=== PATIENT | male | born 1975 | race Caucasian/White ===

== ENCOUNTER → 2019-04-16 | Outpatient (CLI) | payer BC ==
--- NOTE | 2019-04-16 15:18 | US ---
EXAM DESCRIPTION: Venous,Lower Extremity LT: ULTRASOUND. CLINICAL HISTORY: Leg pain left lower extremity. COMPARISON: None Available. TECHNIQUE: Michel-scale and doppler sonographic evaluation of the deep venous system of the left lower extremity. FINDINGS: Doppler evaluation shows normal color flow and normal phasicity and augmentation of the left common femoral vein, femoral vein, popliteal vein, greater saphenous vein, junction with the CFV. Also normal color flow and normal phasicity and augmentation of the peroneal, and posterior tibial vein. The left lower extremity deep veins were completely compressible; normal occlusion with transducer pressure. Michel-scale survey showed no echogenic thrombus within these veins. A small caliber, superficial midline vein posterior to the popliteal fossa that courses to the popliteal vein contains echogenic thrombus on grayscale imaging and is not compressible with the transducer. Also diminished color Doppler flow. As described above, no thrombus in the popliteal vein. IMPRESSION: 1. Duplex ultrasound evaluation of the left lower extremity deep venous system showing no evidence of thrombosis. 2. Thrombus in a posterior midline superficial vein in the popliteal region, but no thrombus in the popliteal vein. This is clinically insignificant. Electronically signed by: Adrian Mcgill MD 04/16/2019 3:16 PM [employer]
--- NOTE | 2019-04-16 15:19 | US ---
EXAM DESCRIPTION: Venous,Lower Extremity RT: ULTRASOUND. CLINICAL HISTORY: leg pain right lower extremity pain and swelling. COMPARISON: Duplex ultrasound evaluation of the deep venous system of the left lower extremity. TECHNIQUE: Michel-scale and doppler sonographic evaluation of the deep venous system of the right lower extremity. FINDINGS: Doppler evaluation shows normal color flow and normal phasicity and augmentation of the right common femoral vein, femoral vein, popliteal vein, greater saphenous vein, junction with the CFV. Also normal color flow and normal phasicity and augmentation of the peroneal, and posterior tibial vein. The right lower extremity deep veins were completely compressible; normal occlusion with transducer pressure. Michel-scale survey showed no echogenic thrombus within these veins. IMPRESSION: 1. Duplex ultrasound evaluation of the right lower extremity deep venous system showing no evidence of thrombosis. Electronically signed by: Adrian Mcgill MD 04/16/2019 3:18 PM [facility]
== END ==
LOC: US 13:40
PROVIDERS: ATTEND Nurse Practitioner Acute Care
DX: I82.812 Embolism and thrombosis of superficial veins of left lower extremity (principal)